=== PATIENT | male | born 1950 | race African-American/Black ===

== ENCOUNTER 2025-08-14 12:53 | Emergency (ER) | payer OTHER, MEDICAID ==
[~2025-08-14] VITALS: Ht 170.2 cm; Wt 50.0 kg
[2025-08-14 12:55] VITALS: O2SAT 99
[2025-08-14] MEDS: SODIUM CHLORIDE 0.9% 1,000 ML IV ONE (13:32)
[2025-08-14 14:18] LABS: HEMATOCRIT. 45.0 % (42.0-52.0); HEMOGLOBIN. 14.6 g/dL (14.0-18.0); MEAN PLATELET VOLUME 10.1 fl (7.4-10.4); PLATELET 170 x1000/uL (130-400); RED BLOOD CELL COUNT 4.64 mill/uL (4.7-6.1); RED CELL DISTRIBUTION WIDTH 14.1 % (11.6-14.6)
[2025-08-14 14:34] LABS: CREATININE 0.9 mg/dL (0.6-1.3); UREA NITROGEN BLOOD 19 mg/dL (9-23)
[2025-08-14 14:35] LABS: PROTEIN TOTAL 7.0 g/dL (6.0-8.3)
[2025-08-14 14:36] LABS: ASPARTATE AMINOTRANSFERASE 56 IU/L (<34); BILIRUBIN DIRECT 0.7 mg/dL (<=3.0)
[2025-08-14 14:37] LABS: BILIRUBIN TOTAL 1.7 mg/dL (0.1-1.0)
[2025-08-14 14:40] LABS: TROPONIN I HIGH SENSITIVITY 64 ng/L (3.0-53)
[2025-08-14] MEDS ORDERED: CLINDAMYCIN 600 MG in DEXTROSE 5% WATER 50 ML IV ONE (15:15)
[2025-08-14] MEDS: CLINDAMYCIN 600MG PREMIX 50 ML IV NR (15:45)
[2025-08-14 16:19] LABS: LYMPHOCYTES % MANUAL 4.0 % (20.0-50.0); MONOCYTES % MANUAL 8.0 % (2.0-8.0); NEUTROPHILS % MANUAL 88.0 % (45.0-75.0); PLATELET ESTIMATE NORMAL
[2025-08-14 17:01] VITALS: BP 152/74; PULSE 77; RESP 16; TEMP 37; O2SAT 100
== END 2025-08-14 17:49 | disposition short-term general hospital (02) ==
LOC: ER 12:53 → CANBEDREQ 17:44 → ER 17:49
DX: M62.82 Rhabdomyolysis (principal); L03.119 Cellulitis of unspecified part of limb; R79.89 Other specified abnormal findings of blood chemistry; E78.00 Pure hypercholesterolemia, unspecified; I10 Essential (primary) hypertension
CPT/HCPCS: 99285; 96365; 71045; 96361; 80076; 80048; 82550; 83605; 85025; 87040; 84484; 36415; 73560; 93005; J3490; J7030; J7060